=== PATIENT | female | born 1990 | race Caucasian/White ===

== ENCOUNTER 2019-07-04 08:28 | Emergency (ER) | payer MEDICARE, MEDICAID ==
[~2019-07-04] VITALS: Ht 162.6 cm; Wt 59.0 kg
--- NOTE | 2019-07-04 09:35 | ED General ---
General Chief Complaint: General Problems/Pain Stated Complaint: POSS 5 WEEKS PREG. - WANTING TO MAKE SURE PREG Nursing Triage Note: AMB TO ROOM BAREFOOT WITH MALE REPORTS LMP WAS IN MAY HAS HAD POS AND NEG PREG TEST. WAS TOLD HER HORMONE LEVEL LOW. HERE FOR PREG TEST. Nursing Sepsis Screen: No Definite Risk Source of Information: Patient, Other (MALE S.O. DOES MOST OF TALKING FOR PT) Past Wbvjkol-Yprtyu-Ifazmm Hx Patient Social History Alcohol Use: Denies Use Recreational Drug Use: No Smoking Status: Never a Smoker Recent Foreign Travel: No Contact w/Someone Who Travel: No Recent Infectious Disease Expo: No Physical Exam Vital Signs Vital Signs - First Documented 07/04/19 08:30 Temp 96.5 Pulse 73 Resp 18 B/P (MAP) 100/57 (71) Pulse Ox 99 Capillary Refill : Less Than 3 Seconds Height, Weight, BMI Height: 5'4.00" Weight: 130lbs. oz. [id number]; BMI Method:Stated Progress/Results/Core Measures Suspected Sepsis Recent Fever Within 48 Hours: No Infection Criteria Present: None New/Unexplained Altered Menta: No Sepsis Screen: No Definite Risk SIRS Temperature:96.5 Pulse: 73 Respiratory Rate: 18 Blood Pressure 100 /57 Mean: 71 Results/Orders My Orders Orders - SHADE STACK DO Urine Bedside (07/04/19 09:29) Vital Signs/I&O 07/04/19 08:30 Temp 96.5 Pulse 73 Resp 18 B/P (MAP) 100/57 (71) Pulse Ox 99 Capillary Refill : Less Than 3 Seconds Blood Pressure Mean: 71 Departure Impression Primary Impression: Negative test Disposition: 01 HOME, SELF-CARE Condition: Stable Departure-Patient Inst. Referrals: NO,LOCAL PHYSICIAN (PCP/Family) Primary Care Physician Patient Instructions: Tests Add. Discharge Instructions: FOLLOW UP WITH [facility] OR [facility] IN 1-2 WEEKS IF YOU DO NOT HAVE A PERIOD All discharge instructions reviewed with patient and/or family. Voiced understanding. SHADE STACK DO Jul 04, 2019 09:35
[2019-07-04 09:52] VITALS: BP 100/57
--- OUTSIDE RECORDS SUMMARY | 2019-07-04 13:44 | XMS REPORT | Continuity of Care Document ---
Demographics x Preferred Language Unknown Marital Status Unknown Adventism Affiliation Unknown Race Unknown Ethnic Group Unknown Author Organization Unknown Address Unknown Phone Unavailable Allergies There is no data. Medications There is no data. Problems There is no data. Procedures There is no data. Results There is no data. Encounters ACCT No. Visit Date/Time Discharge Status Pt. Type Provider Facility Loc./Unit Complaint [id number] 05/22/2019 12:00:00 05/22/2019 23:59:59 [facility]
== END 2019-07-04 09:51 | disposition home or self-care (01) ==
LOC: ER 08:30
DX: Z32.02 Encounter for pregnancy test, result negative (principal)
CPT/HCPCS: 84703; 99282

== ENCOUNTER 2019-10-10 15:29 | Emergency (ER) | payer MEDICARE, MEDICAID ==
[~2019-10-10] VITALS: Ht 163 cm; Wt 55.0 kg
[2019-10-10] MEDS ORDERED: LACTATED RINGERS 1,000 ML IV STA (16:44)
[2019-10-10] MEDS ORDERED: ONDANSETRON 4 MG/2 ML (SDV) Z0FRAN IVP ONE (16:45)
[2019-10-10 16:55] LABS: BASOPHILS % (AUTO) 0 % (0-10); EOSINOPHILS # (AUTO) 0.1 10^3/uL (0.0-0.3); EOSINOPHILS % (AUTO) 2 % (0-10); HEMATOCRIT 36 % (35-52); HEMOGLOBIN 12.4 G/DL (11.5-16.0); LYMPHOCYTES # (AUTO) 1.8 X 10^3 (1.0-4.0); LYMPHOCYTES % (AUTO) 22 % (12-44); MEAN CORPUSCULAR HEMOGLOBIN 30 PG (25-34); MEAN CORPUSCULAR HGB CONC 35 G/DL (32-36); MEAN CORPUSCULAR VOLUME 85 FL (80-99); MEAN PLATELET VOLUME 11.6 FL (7.4-10.4); MONOCYTES # (AUTO) 0.4 X 10^3 (0.0-1.0); MONOCYTES % (AUTO) 5 % (0-12); NEUTROPHILS # (AUTO) 5.8 X 10^3 (1.8-7.8); NEUTROPHILS % (AUTO) 71 % (42-75); PLATELET COUNT 238 10^3/uL (130-400); WHITE BLOOD COUNT 8.2 10^3/uL (4.3-11.0)
[2019-10-10] MEDS ORDERED: NS IV 1000 ML 1,000 ML IV SCH (17:00)
--- NOTE | 2019-10-10 17:01 | ED Abdominal Pain ---
General Chief Complaint: Abdominal/GI Problems Stated Complaint: NAUSATED, STOMACH PAIN 13 WEEKS PREG. Nursing Triage Note: PT PRESENTS TO ED WITH ABDOMINAL CRAMPING, NAUSEA, AND VOMITING SINCE THIS MORNING. PT IS 12WEEKS . DENIES VAGINAL BLEEDING OR DISCHARGE. Sepsis Screen: No Definite Risk Source of Information: Patient Exam Limitations: No Limitations (MARSHALL PORTER) History of Present Illness Date Seen by Provider: Oct 10, 2019 Time Seen by Provider: 16:06 Initial Comments This is a 29 y/o female @ 13 wks who presents to the ED with increased nausea and 3 episodes of Vomiting yesterday and 2 episodes of vomiting today. She has also been having intermittent cramping abd pain along midline of her abd and slightly to the left. Also reports some pain in the suprapubic region. Denies any dysuria, frequency more considered normal in , vaginal discharge or bleeding, hematuria, diarrhea, constipation, CP, HTN, SOB, cough, Fevers, chills, or any flu-like sx. Denies any reflux or radiation of pain to her back or anywhere else. Pt reports in her latest OB f/u she was told she has a "Placental hemorrhage". She states her abd pain is in the same region she was told she had the hemorrhage. Denies any hx of recent falls or trauma. States she has metoclopramide at home but she has not been taking it 2/2 "vomiting and because I didn't feel good". Pt states this is her first , and though it was not exactly planned, it was wanted. Pt has hx of sepsis 2/2 UTI which lead to pyelonephritis. Pt lives at home with alf who is present at the time of exam. Pt in unable to provide any FH since she is adopted. No further compla ints at this time. Timing/Duration: 1-2 Days Severity/Quality: Moderate, Cramping Location: Suprapubic, Other (along midline abdomen) Radiation: No Radiation Activities at Onset: None Associated Symptoms: No Back Pain, No Chest Pain, No Diaphoresis, No Fever/Chills, No Heartburn; Nausea/Vomiting; No Rash, No Shortness of Air, No Weakness (MARSHALL PORTER) Timing/Duration: 1-2 Days Severity/Quality: Mild, Moderate, Cramping Location: Suprapubic Radiation: No Radiation Activities at Onset: None Associated Symptoms: No Back Pain, No Fever/Chills (YAMILETH CLARK MD) Allergies and Home Medications Allergies Coded Allergies: No Known Drug Allergies (Unverified , 10/10/19) Home Medications Cephalexin 500 Mg Tablet, 500 MG PO BID Prescribed by: YAMILETH CLARK on 10/10/19 1820 Patient Home Medication List Home Medication List Reviewed: Yes (YAMILETH CLARK MD) Review of Systems Review of Systems Constitutional: No chills, No diaphoresis, No fever, No malaise, No weakness EENTM: No Symptoms Reported Respiratory: Denies Cough, Denies Orthopnea, Denies Shortness of Air Cardiovascular: Denies Chest Pain, Denies Edema, Denies Palpitations Gastrointestinal: Denies Abdomen Distended; Abdominal Pain; Denies Blood Streaked Stools, Denies Constipated, Denies Diarrhea, Denies Difficulty Swallowing; Nausea, Poor Fluid Intake; Denies Rectal Bleeding; Vomiting Genitourinary: Denies Burning, Denies Discharge, Denies Drainage, Denies Frequ ency, Denies Flank Pain, Denies Hematuria, Denies Urgency Musculoskeletal: No back pain, No muscle pain Skin: no symptoms reported Psychiatric/Neurological: No Symptoms Reported (MARSHALL PORTER) All Other Systems Reviewed Negative Unless Noted: Yes (YAMILETH CLARK MD) Past Ggdiwmw-Dqsxna-Ozchrx Hx Past Med/Social Hx: Reviewed Nursing Past Med/Soc Hx (YAMILETH CLARK MD) Patient Social History Alcohol Use: Denies Use Recreational Drug Use: No Smoking Status: Former Smoker Type Used: Cigarettes Former Smoker, Quit: Feb 06, 2019 Recent Foreign Travel: No Contact w/Someone Who Travel: No Recent Infectious Disease Expo: No Recent Hopitalizations: No Physical Abuse: No Sexual Abuse: No (MARSHALL PORTER) Past Medical History Surgeries: No Cardiac: No Neurological: No : Yes Hx : 1 Hx Para: 0 Hx Total # of Abortions (Sp): 0 Reproductive Disorders: Yes (CERVICAL DYSPLASIA) Genitourinary: No Gastrointestinal: No Musculoskeletal: No Endocrine: No HEENT: No Cancer: No Psychosocial: No Integumentary: No Blood Disorders: No ([facility] Family Medical History Reviewed Nursing Family Hx (YAMILETH CLARK MD) Physical Exam Vital Signs Vital Signs - First Documented 10/10/19 15:51 Temp 37.2 Pulse 83 Resp 18 B/P (MAP) 102/67 (79) Pulse Ox 98 O2 Delivery Room Air (YAMILETH CLARK MD) Vital Signs Capillary Refill : Less Than 3 Seconds ([facility] Height/Weight/BMI Height: 5'4.00" Weight: 130lbs. oz. 58.610479ax; 20.00 BMI Method:Stated General Appearance: WD/WN, no apparent distress HEENT: PERRL/EOMI, normal ENT inspection, pharynx normal, other (overall poor dentition) Neck: non-tender, full range of motion, supple, normal inspection Respiratory: chest non-tender, lungs clear, normal breath sounds, no respiratory distress, no accessory muscle use Cardiovascular: normal peripheral pulses, regular rate, rhythm, no edema, no gallop, no JVD, no murmur Gastrointestinal: normal bowel sounds, soft, no organomegaly, no pulsatile mass, tenderness (tenderness diffusly along midline abd and slightly to the left) Extremities: no pedal edema, no calf tenderness Back: normal inspection, no CVA tenderness, no vertebral tenderness Neurologic/Psychiatric: alert, oriented x 3 Skin: normal color, warm/dry Lymphatic: no adenopathy ([facility]) General Appearance: WD/WN, no apparent distress Respiratory: lungs clear, normal breath sounds Cardiovascular: regular rate, rhythm, no murmur Gastrointestinal: soft, tenderness (mild suprapubic with more towards the left.) Neurologic/Psychiatric: alert, oriented x 3 Skin: normal color, warm/dry (YAMILETH CLARK MD) Progress/Results/Core Measures Results/Orders Lab Results Laboratory Tests Test 10/10/19 15:53 10/10/19 16:10 Range/Units White Blood Count 8.2 4.3-11.0 10^3/uL Red Blood Count 4.21 L 4.35-5.85 10^6/uL Hemoglobin 12.4 11.5-16.0 G/DL Hematocrit 36 35-52 % Mean Corpuscular Volume 85 80-99 FL Mean Corpuscular Hemoglobin 30 25-34 PG Mean Corpuscular Hemoglobin Concent 35 32-36 G/DL Red Cell Distribution Width 13.0 10.0-14.5 % Platelet Count 238 130-400 10^3/uL Mean Platelet Volume 11.6 H 7.4-10.4 FL Neutrophils (%) (Auto) 71 42-75 % Lymphocytes (%) (Auto) 22 12-44 % Monocytes (%) (Auto) 5 0-12 % Eosinophils (%) (Auto) 2 0-10 % Basophils (%) (Auto) 0 0-10 % Neutrophils # (Auto) 5.8 1.8-7.8 X 10^3 Lymphocytes # (Auto) 1.8 1.0-4.0 X 10^3 Monocytes # (Auto) 0.4 0.0-1.0 X 10^3 Eosinophils # (Auto) 0.1 0.0-0.3 10^3/uL Basophils # (Auto) 0.0 0.0-0.1 10^3/uL Human Chorionic Gonadotropin, Quant 77331 H <5 MIU/ML Urine Color YELLOW Urine Clarity CLEAR Urine pH 6.0 5-9 Urine Specific [place] 1.025 H 1.016-1.022 Urine Protein NEGATIVE NEGATIVE Urine Glucose (UA) NEGATIVE NEGATIVE Urine Ketones NEGATIVE NEGATIVE Urine Nitrite NEGATIVE NEGATIVE Urine Bilirubin NEGATIVE NEGATIVE Urine Urobilinogen 1.0 < = 1.0 MG/DL Urine Leukocyte Esterase NEGATIVE NEGATIVE Urine RBC (Auto) NEGATIVE NEGATIVE Urine RBC NONE /HPF Urine WBC 5-10 H /HPF Urine Squamous Epithelial Cells 2-5 /HPF Urine Crystals NONE /LPF Urine Calcium Oxalate Crystals MODERATE H /LPF Urine Bacteria MODERATE H /HPF Urine Casts NONE /LPF Urine Mucus NEGATIVE /LPF Urine Culture Indicated YES (YAMILETH CLARK MD) My Orders Orders - YAMILETH CLARK MD Ed Iv/Invasive Line Start (10/10/19 16:44) Cbc With Automated Diff (10/10/19 16:44) Ondansetron Injection (Zofran Injectio (10/10/19 16:45) Lactated Ringers (Lr 1000 Ml Iv Solution (10/10/19 16:44) Cephalexin Capsule (Keflex Capsule) (10/10/19 18:11) (YAMILETH CLARK MD) Medications Given in ED Current Medications Medications Dose Ordered Sig/Alisa Route Start Time Stop Time Status Last Admin Dose Admin Ondansetron HCl 4 mg ONCE ONCE IVP 10/10/19 16:45 10/10/19 16:48 DC 10/10/19 16:54 4 MG (YAMILETH CLARK MD) Vital Signs/I&O 10/10/19 15:51 Temp 37.2 Pulse 83 Resp 18 B/P (MAP) 102/67 (79) Pulse Ox 98 O2 Delivery Room Air (YAMILETH CLARK MD) Blood Pressure Mean: 79 POS Progress Progress Note : Time: 16:06 Progress Note Seen and evaluated. ddx include dehydration, UTI, viral gastroenteritis. Will evaluate status via bedside U/S. will order CBC, CMP, U/A. Will started LR IVF and IV Zofran. Will monitor pt. (MARSHALL PORTER [facility]) Progress Note : Progress Note I have seen and evaluated the patient and agree with above except as indicated. I have directed the plan of care. Patient is here with lower abdominal pain for one to 2 days. Denies vaginal discharge or bleeding. Last sexual activity 3 months ago. She has been seen by her OB doctor in [place]. This is her first . Bedside ultrasound performed and shows fetus approximately 13-6/7 by femur length with heart tones of 150 and positive movement. Nontender on ultrasound exam. IV, labs and UA ordered. LR 1 L bolus with Zofran 4 mg IV. Monitor patient. 1814: UTI noted. Keflex 500 mg by mouth ordered. We will continue that outpatient. She is instructed to follow-up with her OB doctor for further evaluation. Overall feels better at time of discharge was able to walk to the bathroom without difficulty or any significant pain. Discharged home with return precautions. Patient verbalize understanding instructions and agreement with plan. (YAMILETH CLARK MD) Departure Impression Primary Impression: Urinary tract infection Qualified Codes: N30.00 - Acute cystitis without hematuria Additional Impression: Left lower quadrant abdominal pain affecting Disposition: HOME, SELF-CARE Condition: Stable Departure-Patient Inst. Decision time for Depature: 18:17 (YAMILETH CLARK MD) Referrals: NO,LOCAL PHYSICIAN (PCP/Family) Primary Care Physician Patient Instructions: Acute Abdomen (Belly Pain), Adult (DC), Urinary Tract Infection, Adult (DC) Add. Discharge Instructions: All discharge instructions reviewed with patient and/or family. Voiced understanding. Take medications as directed. Follow-up with your choir member this week for recheck and further evaluation. Return for worse pain, fever, vomiting, weakness, breathing problems or other concerns as needed. Drink plenty of fluids. Scripts Cephalexin (Cephalexin) 500 Mg Tablet 500 MG PO BID, #13 TAB 0 Refills Prov: YAMILETH CLARK MD 10/10/19 MARSHALL PORTER [facility] Oct 10, 2019 17:01 YAMILETH RABAGO MD Oct 10, 2019 18:20 POS
[2019-10-10 17:08] LABS: BILIRUBIN,URINE NEGATIVE (NEGATIVE); CLARITY,URINE CLEAR; COLOR,URINE YELLOW; GLUCOSE, URINE (UA) NEGATIVE (NEGATIVE); KETONES,URINE NEGATIVE (NEGATIVE); LEUKOCYTE ESTERASE ,URINE NEGATIVE (NEGATIVE); NITRITE,URINE NEGATIVE (NEGATIVE); PROTEIN,URINE NEGATIVE (NEGATIVE)
[2019-10-10 17:35] LABS: BACTERIA,URINE MODERATE /HPF; CALCIUM OXALATE CRYSTALS,UR MODERATE /LPF
[2019-10-10] MEDS ORDERED: CEPHALEXIN 250 MG (KEFLEX) CAP PO STA (18:11)
[2019-10-10] MEDS ORDERED: CEPH500T PO (18:20)
[2019-10-10 18:30] VITALS: BP 102/67
== END 2019-10-10 18:32 | disposition home or self-care (01) ==
LOC: EDUNIT# 15:29 → ER 15:32
DX: O23.41 Unspecified infection of urinary tract in pregnancy, first trimester (principal); O26.891 Other specified pregnancy related conditions, first trimester; R10.32 Left lower quadrant pain; Z3A.13 13 weeks gestation of pregnancy; Z87.891 Personal history of nicotine dependence
CPT/HCPCS: 36415; 81000; 84702; 85025; 86900; 86901; 87088